=== PATIENT | female | born 1965 | race Caucasian/White ===

== ENCOUNTER 2017-06-14 11:07 | Emergency (ER) | payer OTHER ==
[~2017-06-14] VITALS: Ht 182.9 cm; Wt 95.3 kg
[~2017-06-14 11:07] MED LIST: ENDOCET 325 MG-1 TA1 PO; OXY IR5 MG PO; PERCOCET 325 MG1 TA2 PO; PERCOCET 5-3251 EACH PO; PREDNISONE 20MG20 MG PO; VALIUM5 M1 PO; VALIUM5 M2 PO
[2017-06-14] MEDS ORDERED: PERCOCET 5-3251 EACH PO ×4 (13:02→13:42)
[2017-06-14] MEDS ORDERED: IBUPROFEN600 M1 PO (13:02)
[2017-06-14] MEDS ORDERED: CYCLOBENZAPRINE10 M1 PO (13:02)
--- NOTE | 2017-06-14 13:03 | ED NECK/BACK PAIN COMPLAINT ---
History of Present Illness General Chief Complaint: Low Back Pain/Injury Stated Complaint: LOW BACK PAIN RADIATING TO LEFT ARM Source: patient, old records Exam Limitations: no limitations Vital Signs & Intake/Output Vital Signs & Intake/Output Vital Signs Date Time Temp Pulse Resp B/P B/P Pulse O2 O2 Flow FiO2 Mean Ox Delivery Rate 06/14 1315 98.6 82 16 145/78 98 Room Air 06/14 1112 98.6 96 18 160/90 98 Room Air Allergies Coded Allergies: acetaminophen (From PERCOCET) (Severe, ICHINESS 06/14/17) oxycodone (From PERCOCET) (Severe, ICHINESS 06/14/17) Reconcile Medications Cyclobenzaprine HCl 10 MG TABLET 1 TAB PO TID PRN muscle striain Diazepam (Valium) 5 MG TABLET 1 TAB PO BIDP PRN MUSCLE SPASM TEN....[id number] Diazepam (Valium) 5 MG TAB 1 TAB PO QHS PRN PAIN/SPASMS Diazepam (Valium) 5 MG TAB 1 TAB PO TID PRN SPASM Diazepam (Valium) 5 MG TAB 1 TAB PO TID PRN SPASM Ibuprofen 600 MG TABLET 1 TAB PO Q6P PRN pain with food Oxycodone HCl/Acetaminophen (Percocet 5-325 MG Tablet) 1 EACH TABLET 1 TAB PO TID PRN PAIN TEN...BRAND NAME MEDICALLY NECESSARY... [id number] OXYCODONE HCL/ACETAMINOPHEN (Percocet 5-325 MG Tablet) 325 MG/5 MG TAB 1 TAB PO Q12H PRN PAIN Oxycodone HCl/Acetaminophen (Percocet 5-325 MG Tablet) 5 MG-325 MG TABLET 1-2 TAB PO Q6P PRN severe pain Brand medically necessary Oxycodone HCl/Acetaminophen (Percocet 5-325 MG Tablet) 5 MG-325 MG TABLET 1-2 TAB PO Q6P PRN severe pain OXYCODONE HCL/ACETAMINOPHEN (Endocet 5-325 Tablet) 1 TAB TAB 1 TAB PO Q6H PRN PAIN OXYCODONE HCL/ACETAMINOPHEN (Percocet 5-325 MG Tablet) 325 MG/5 MG TAB 1-2 TAB PO Q4-6 PRN PRN PAIN Triage Note: 51 YO FEMALE TO TRIAGE C/O LOWER BACK PAIN SINCE LAST PM. DENIES INJURY. STATES HAS BEEN GOING TO THERAPY FOR HER NECK (HAD CERVICAL FUSION). STATES AFTER THRERAPY YESTERDAY HER L ARM STARTED TO HURT WITH MVOEMENT. STATES SHE DIDNT TAKE ANYTHING FOR PAIN BECAUSE NOTHING WORKS. Triage Nurses Notes Reviewed? yes Onset: Morning Duration: hour(s):, constant, continues in ED Timing: recent history Quality/Severity: moderate, sharpness Location: paraspinous muscles Radiation: left shoulder Context: lifting, turning/bending Method of Injury: twisted Loss of Consciousness: no loss of consciousness Modifying Factors: immobilization, movement, rest Associated Symptoms: muscle spasm LMP (ages 10-50): post menopausal : No Patient currently breastfeeds: No HPI: Yesterday the patient was at physical therapy doing exercises for her neck. She woke this morning with left shoulder pain difficulty raising arm. She denies fever chills nausea vomiting diarrhea abdominal pain chest pain shortness of breath headache dysuria rash bleeding trauma change in motor sensory function. Past History Travel History Traveled to [place] past 21 day No Medical History Any Pertinent Medical History? 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 No Review of Systems Review of Systems Constitutional: Reports: no symptoms. Eyes: Reports: no symptoms. Ears, Nose, Throat, Mouth: Reports: no symptoms. Respiratory: Reports: no symptoms. Cardiovascular: Reports: no symptoms. Gastrointestinal/Abdominal: Reports: no symptoms. Musculoskeletal: Reports: see HPI, muscle pain, muscle stiffness. Skin: Reports: no symptoms. Neurological/Psychological: Reports: no symptoms. All Other Systems: Reviewed and Negative Physical Exam Physical Exam General Appearance: well developed/nourished, alert, awake, anxious, mild distress, obese Head: atraumatic, normal appearance Eyes: Bilateral: normal appearance, PERRL, EOMI, normal inspection. Ears, Nose, Throat, Mouth: hearing grossly normal, moist mucous membrane Neck: normal inspection, supple, full range of motion, normal alignment, paraspinous muscle tender, no midline tenderness Respiratory: normal breath sounds, chest non-tender, no respiratory distress, quiet respiration, lungs clear Cardiovascular: regular rate/rhythm, normal peripheral pulses, norml femoral pulses equa Peripheral Pulses: 4+ carotid (R), 4+ carotid (L) Gastrointestinal: normal bowel sounds, soft, non-tender, no organomegaly Back: normal inspection, normal range of motion, no vertebral tenderness Extremities: non-tender, no ligament instability, L trapezius spasm / tenderness Straight Leg Raising: Right: Negative. Left: Negative. Sensory: Medial Le: L4R, L4L. Top of Foot: 2: L5R, L5L. Motor: Deficit L4 Right: No Deficit L4 Left: No Deficit L5 Right: No Deficit L5 Left: No Deficit S1 Right: No Deficit S1 Right: No DTR: Deficit L4 Left: No Deficit L4 Right: No Deficit S1 Left: No Deficit S1 Right: No Patellar: 3: L4 Right, L4 Left. Neurologic/Psych: awake, alert, oriented x 3, normal gait, normal mood/affect, line controller II-XII nml as tested Skin: intact, normal color, warm/dry Core Measures CVA/TIA Diagnosis: No Progress Differential Diagnosis: herniated disc, myofascial strain Plan of Care: Orders Procedure Date/time Status Durable Medical Equipment 06/14 1256 Active Departure Departure Time of Disposition: [facility] Disposition: HOME OR SELF CARE Condition: Stable Clinical Impression Primary Impression: Left shoulder strain Referrals: Patient Has No Primary Care Dr (PCP/Family) Departure Forms: Customer Survey General Discharge Information Prescriptions: Current Visit Scripts Ibuprofen 1 TAB PO Q6P PRN pain #30 TAB with food Cyclobenzaprine HCl 1 TAB PO TID PRN muscle striain #30 TAB Oxycodone HCl/Acetaminophen (Percocet 5-325 MG Tablet) 1-2 TAB PO Q6P PRN severe pain #15 TAB Brand medically necessary Oxycodone HCl/Acetaminophen (Percocet 5-325 MG Tablet) 1-2 TAB PO Q6P PRN severe pain #15 TAB
[2017-06-14 13:15] VITALS: BP 145/78
== END 2017-06-14 13:29 ==
LOC: ERH 11:07
DX: S46.912A Strain of unspecified muscle, fascia and tendon at shoulder and upper arm level, left arm, initial encounter (principal); X58.XXXA Exposure to other specified factors, initial encounter; Y92.9 Unspecified place or not applicable; Y93.9 Activity, unspecified

== ENCOUNTER 2017-06-16 08:05 | Emergency (ER) | payer OTHER ==
[~2017-06-16] VITALS: Ht 182.9 cm; Wt 102.1 kg
[~2017-06-16 08:05] MED LIST changes: +CYCLOBENZAPRINE10 M1 PO; +IBUPROFEN600 M1 PO
[2017-06-16 08:09] VITALS: BP 140/85
[2017-06-16] MEDS ORDERED: PERCOCET 5-3251 EACH PO (09:06)
[2017-06-16] MEDS ORDERED: BENADRYL ALLERG25 M2 PO (09:06)
--- NOTE | 2017-06-16 09:06 | ED GENERAL ADULT ---
History of Present Illness General Chief Complaint: General Adult Stated Complaint: ASKING FOR PAIN MED SEEN 06 14 FOR SAME Source: patient, old records Exam Limitations: no limitations Vital Signs & Intake/Output Vital Signs & Intake/Output Vital Signs Date Time Temp Pulse Resp B/P B/P Pulse O2 O2 Flow FiO2 Mean Ox Delivery Rate 06/16 0809 98.0 50 22 140/85 96 Room Air Allergies Coded Allergies: acetaminophen (From PERCOCET) (Severe, ICHINESS 06/14/17) oxycodone (From PERCOCET) (Severe, ICHINESS 06/14/17) Reconcile Medications Cyclobenzaprine HCl 10 MG TABLET 1 TAB PO TID PRN muscle striain Diazepam (Valium) 5 MG TABLET 1 TAB PO BIDP PRN MUSCLE SPASM TEN....[id number] Diazepam (Valium) 5 MG TAB 1 TAB PO QHS PRN PAIN/SPASMS Diazepam (Valium) 5 MG TAB 1 TAB PO TID PRN SPASM Diazepam (Valium) 5 MG TAB 1 TAB PO TID PRN SPASM Diphenhydramine HCl (Benadryl Allergy) 25 MG TABLET 1-2 TAB PO Q6P PRN itching Ibuprofen 600 MG TABLET 1 TAB PO Q6P PRN pain with food Oxycodone HCl/Acetaminophen (Percocet 5-325 MG Tablet) 1 EACH TABLET 1 TAB PO TID PRN PAIN TEN...BRAND NAME MEDICALLY NECESSARY... [id number] OXYCODONE HCL/ACETAMINOPHEN (Percocet 5-325 MG Tablet) 325 MG/5 MG TAB 1 TAB PO Q12H PRN PAIN Oxycodone HCl/Acetaminophen (Percocet 5-325 MG Tablet) 5 MG-325 MG TABLET 1-2 TAB PO Q6P PRN severe pain Brand medically necessary Oxycodone HCl/Acetaminophen (Percocet 5-325 MG Tablet) 5 MG-325 MG TABLET 1-2 TAB PO Q6P PRN severe pain Oxycodone HCl/Acetaminophen (Percocet 5-325 MG Tablet) 5 MG-325 MG TABLET 1-2 TAB PO Q6P PRN severe pain OXYCODONE HCL/ACETAMINOPHEN (Endocet 5-325 Tablet) 1 TAB TAB 1 TAB PO Q6H PRN PAIN OXYCODONE HCL/ACETAMINOPHEN (Percocet 5-325 MG Tablet) 325 MG/5 MG TAB 1-2 TAB PO Q4-6 PRN PRN PAIN Triage Note: REQUESTING MEDICATIONS FOR PAIN. SHE IS REQUESTING TO BE PRESCRIBED PERCOCET FOR NECK, ARM AND BACK PAIN. Triage Nurses Notes Reviewed? yes Onset: Last week Duration: day(s):, constant, continues in ED Timing: recent history Injury Environment: physical therapy Severity: moderate, severe No Modifying Factors: none Modifying Factors: Improves With: rest. Worsens With: movement. Associated Symptoms: back pain LMP (ages 10-50): post menopausal : No Patient currently breastfeeds: No HPI: 3 days prior to admission patient injured the left side of her neck and shoulder during physical therapy was evaluated prescribed medications. She was unable to obtain the medications due to shortage. She denies fever chills nausea vomiting diarrhea abdominal pain chest pain shortness breath headache dysuria rash bleeding. Past History Travel History Traveled to [place] past 21 day No Medical History Any Pertinent Medical History? 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 No Review of Systems Review of Systems Constitutional: Reports: no symptoms. EENTM: Reports: no symptoms. Respiratory: Reports: no symptoms. Cardiovascular: Reports: no symptoms. GI: Reports: no symptoms. Genitourinary: Reports: no symptoms. Musculoskeletal: Reports: see HPI, joint pain, muscle pain, neck pain. Skin: Reports: no symptoms. Neurological/Psychological: Reports: no symptoms. Hematologic/Endocrine: Reports: no symptoms. Immunologic/Allergic: Reports: no symptoms. All Other Systems: Reviewed and Negative Physical Exam Physical Exam General Appearance: well developed/nourished, alert, awake, anxious, mild distress Head: atraumatic, normal appearance Eyes: Bilateral: normal appearance, PERRL, EOMI. Ears, Nose, Throat: normal pharynx, normal ENT inspection, hearing grossly normal Neck: normal inspection, supple, limited range of motion, no midline tenderness Respiratory: normal breath sounds, chest non-tender, no respiratory distress, quiet respiration, lungs clear Cardiovascular: regular rate/rhythm, normal peripheral pulses, norml femoral pulses equa Peripheral Pulses: 4+ carotid (R), 4+ carotid (L) Gastrointestinal: normal bowel sounds, soft, non-tender, no organomegaly Back: normal inspection, normal range of motion Extremities: normal inspection, normal capillary refill, normal range of motion, no edema Neurologic/Psych: no motor/sensory deficits, awake, alert, oriented x 3, normal gait, normal mood/affect, 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 Skin: intact, normal color, warm/dry Lymphatic: no anterior cervical vianney Core Measures ACS in differential dx? No CVA/TIA Diagnosis: No Sepsis Present: No Sepsis Focused Exam Completed? No Progress Differential Diagnoses I considered the following diagnoses in my evaluation of the patient: Myofascial pain syndrome Plan of Care: prescription Initial ED EKG: none Departure Departure Time of Disposition: 903 Disposition: HOME OR SELF CARE Condition: Stable Clinical Impression Primary Impression: Cervical myofascial pain syndrome Referrals: Patient Has No Primary Care Dr (PCP/Family) Departure Forms: Customer Survey General Discharge Information Prescriptions: Current Visit Scripts Oxycodone HCl/Acetaminophen (Percocet 5-325 MG Tablet) 1-2 TAB PO Q6P PRN severe pain #15 TAB Diphenhydramine HCl (Benadryl Allergy) 1-2 TAB PO Q6P PRN itching #30 TAB Ref 1 Critical Care Note Critical Care Note Critical Care Time: non-applicable
== END 2017-06-16 09:15 ==
LOC: ERH 08:05
DX: M54.2 Cervicalgia (principal)